=== PATIENT | male | born 1990 | race African-American/Black ===

== ENCOUNTER 2018-09-10 19:41 | Inpatient (IN) | payer OTHER, MEDICAID ==
[~2018-09-10] VITALS: Ht 170.2 cm; Wt 70.3 kg
[2018-09-10] MEDS ORDERED: IPRATROPIUM BROMIDE (0.02%) 0.5MG/2.5ML NEB HHN STA (20:58)
[2018-09-10] MEDS ORDERED: ALBUTEROL (0.083%) 2.5MG/3ML NEB HHN STA ×2 (20:58→23:31)
[2018-09-10] MEDS ORDERED: METHYLPREDNISOLONE SOD SUCC 125 MG/2 ML VIAL IV STA (20:58)
[2018-09-10] MEDS ORDERED: ACETAMINOPHEN 500MG TABLET PO ONE (21:00)
[2018-09-10 21:40] LABS: HEMATOCRIT. 41.4 % (42.0-52.0); HEMOGLOBIN. 13.9 g/dL (14.0-18.0); MEAN CORPUSCULAR HEMOGLOBIN 27.4 pg (28.0-32.0); MEAN CORPUSCULAR VOLUME 81.4 fL (80.0-94.0); MEAN PLATELET VOLUME 7.6 fl (7.4-10.4); PLATELET 152 x1000/uL (130-400); RED BLOOD CELL COUNT 5.09 mill/uL (4.7-6.1); RED CELL DISTRIBUTION WIDTH 12.9 % (11.6-14.6)
[2018-09-10 21:44] LABS: CHLORIDE 99 mEq/L (98-107)
[2018-09-10 22:44] LABS: PLATELET ESTIMATE NORMAL
[2018-09-10] MEDS ORDERED: OSELTAMIVIR 75MG CAPSULE PO ONE (23:45)
[2018-09-10] MEDS ORDERED: LEVOFLOXACIN 500MG PREMIX 100 ML IV ONE (23:45)
[2018-09-11] VITALS (7 sets, daily range): BP systolic 130–135; BP diastolic 62–77
[2018-09-11] MEDS ORDERED: MAGNESIUM/ALUMINUM HYDROXIDE/SIMETHICONE 30ML UDC PO PRN (02:15)
[2018-09-11] MEDS ORDERED: IPRATROPIUM/ALBUTEROL 0.5-3(2.5)MG/3ML NEB INH PRN (02:15)
[2018-09-11] MEDS ORDERED: CLONIDINE 0.1MG TABLET PO PRN (02:15)
[2018-09-11] MEDS ORDERED: HYDROCODONE/ACETAMINOPHEN 5/325MG TABLET PO PRN (02:15)
[2018-09-11] MEDS ORDERED: ACETAMINOPHEN 325MG TABLET PO PRN (02:15)
[2018-09-11] MEDS ORDERED: DOCUSATE SODIUM 100MG CAPSULE PO PRN (02:15)
[2018-09-11] MEDS ORDERED: ONDANSETRON HCL 4MG/2ML INJ IV PRN (02:15)
[2018-09-11] MEDS: METHYLPREDNISOLONE SOD SUCC 125 MG/2 ML VIAL IV SCH ×2 (06:14→11:22)
[2018-09-11] MEDS: IPRATROPIUM/ALBUTEROL 0.5-3(2.5)MG/3ML NEB INH SCH ×3 (08:30→21:54)
[2018-09-11] MEDS ORDERED: POTASSIUM CHLORIDE 20MEQ TABLET SR PO NR (10:30)
[2018-09-11] MEDS ORDERED: INFLUENZA VIRUS VACCINE(AFLURIA) 0.5ML SYR IM ONE (10:45)
[2018-09-11] MEDS ORDERED: PNEUMOCOCCAL 23-VAL P-SAC VAC 0.5 ML IM ONE (10:45)
[2018-09-11] MEDS: LORATADINE 10MG TABLET PO SCH (15:04)
[2018-09-11] MEDS: MONTELUKAST SODIUM 10MG TABLET PO SCH (17:46)
[2018-09-11] MEDS: PREDNISONE 20MG TABLET PO SCH (17:46)
[2018-09-11] MEDS ORDERED: LEVOFLOXACIN 500MG PREMIX 100 ML IV SCH ×2 (18:00→21:00)
[2018-09-11] MEDS: FAMOTIDINE 20MG/2ML VIAL IV SCH (21:32)
[2018-09-11 21:40] LABS: CLARITY URINE CLEAR (CLEAR); COLOR URINE YELLOW (YELLOW); KETONES URINE NEGATIVE (NEGATIVE); LEUKOCYTE ESTERASE URINE NEGATIVE (NEGATIVE); NITRITE URINE NEGATIVE (NEGATIVE); OCCULT BLOOD URINE NEGATIVE (NEGATIVE); PH URINE 7.5 (4.5-8.0); PROTEIN URINE NEGATIVE (NEGATIVE); SPECIFIC GRAVITY URINE 1.019 (1.005-1.030); UROBILINOGEN URINE 0.2 E.U./dL (0.2-1.0)
[2018-09-11 21:57] LABS: *BARBITURATES SCREEN URINE NEGATIVE (NEGATIVE); *BENZODIAZEPINES SCREEN URINE NEGATIVE (NEGATIVE); *COCAINE SCREEN URINE NEGATIVE (NEGATIVE)
[2018-09-11 21:58] LABS: *AMPHETAMINES SCREEN URINE NEGATIVE (NEGATIVE); CANNABINOID URINE SCREEN PRESUMTIVE POSITIVE (NEGATIVE); METHADONE URINE SCREEN NEGATIVE (NEGATIVE); OPIATES URINE SCREEN PRESUMTIVE POSITIVE (NEGATIVE); PHENCYCLIDINE URINE SCREEN NEGATIVE (NEGATIVE)
[2018-09-12] VITALS: BP 146/62
[2018-09-12] MEDS: IPRATROPIUM/ALBUTEROL 0.5-3(2.5)MG/3ML NEB INH SCH ×3 (03:16→13:29)
[2018-09-12 04:00] VITALS: BP 125/78
[2018-09-12 07:04] LABS: HEMATOCRIT. 43.1 % (42.0-52.0); HEMOGLOBIN. 14.3 g/dL (14.0-18.0); LYMPHOCYTES % 9.2 % (20.0-50.0); MEAN CORPUSCULAR HEMOGLOBIN 27.3 pg (28.0-32.0); MEAN CORPUSCULAR VOLUME 82.2 fL (80.0-94.0); MEAN PLATELET VOLUME 7.8 fl (7.4-10.4); MONOCYTES % 13.6 % (2.0-8.0); NEUTROPHILS % 77.2 % (40.0-76.0); PLATELET 170 x1000/uL (130-400); RED BLOOD CELL COUNT 5.25 mill/uL (4.7-6.1); RED CELL DISTRIBUTION WIDTH 13.3 % (11.6-14.6)
[2018-09-12 07:24] LABS: CHLORIDE 104 mEq/L (98-107)
[2018-09-12 08:00] VITALS: BP 134/72
[2018-09-12] MEDS: PREDNISONE 20MG TABLET PO SCH ×2 (09:11→18:00)
[2018-09-12] MEDS: LORATADINE 10MG TABLET PO SCH (09:11)
[2018-09-12] MEDS: FAMOTIDINE 20MG/2ML VIAL IV SCH (09:11)
[2018-09-12 12:00] VITALS: BP 121/60
[2018-09-12 15:26] VITALS: BP 121/60
[2018-09-12 16:00] VITALS: BP 126/70
[2018-09-12] MEDS: MONTELUKAST SODIUM 10MG TABLET PO SCH (18:01)
== END 2018-09-12 18:00 | disposition home or self-care (01) | DRG 189 ==
LOC: ER 19:41 → 7WST 23:52 → EDBEDREQ 23:54 → EDBEDREQTM 23:54 → SUPCPDRO 09-11 02:08 → ENRESERV 09-11 04:57
PROVIDERS: ADMIT Hospitalist; ATTEND Hospitalist
DX: J96.00 Acute respiratory failure, unspecified whether with hypoxia or hypercapnia (principal); J45.901 Unspecified asthma with (acute) exacerbation; J20.9 Acute bronchitis, unspecified; E87.6 Hypokalemia; F12.90 Cannabis use, unspecified, uncomplicated; Z79.899 Other long term (current) drug therapy
CPT/HCPCS: 36415; 71045; 80305; 87804; 93005; 94640; 96365; 99285; J1956; J2930; J3490; J7050; J7512; J7611; J7620